=== PATIENT | female | born 1925 | race Caucasian/White ===

== ENCOUNTER 2016-08-10 12:47 | Inpatient (IN) | payer OTHER, MEDICAID ==
[~2016-08-10] VITALS: Ht 154.9 cm; Wt 66.7 kg
[2016-08-10 13:08] VITALS: BP_SYST 145
[2016-08-10 14:00] LABS: EOSINOPHILS # (AUTO) 0.1 K/uL (0.0-0.4); EOSINOPHILS % (AUTO) 2.1 % (0.0-4.0)
[2016-08-10 14:05] LABS: BASOPHILS % (AUTO) 0.2 % (0.0-2.0); HEMATOCRIT 35.8 % (36-48); HEMOGLOBIN 11.9 g/dL (12.0-16.0); LYMPHOCYTES # (AUTO) 1.6 K/uL (1.0-5.5); LYMPHOCYTES % (AUTO) 23.7 % (20.5-51.5); MEAN CORPUSCULAR HEMOGLOBIN 30 pg (27-31); MEAN CORPUSCULAR HGB CONC 33 % (32-36); MEAN CORPUSCULAR VOLUME 89 fL (79.0-98.0); MONOCYTES # (AUTO) 0.6 K/uL (0.0-1.0); NEUTROPHILS # (AUTO) 4.6 K/uL (1.8-7.7); PLATELET COUNT (AUTO) 232 K/uL (130-430); RED BLOOD CELL COUNT(AUTO) 4.03 MIL/uL (4.2-6.2); RED CELL DISTRIBUTION WIDTH 14.3 % (9.0-15.0); WHITE BLOOD COUNT (AUTO) 6.9 K/uL (4.8-10.8)
[2016-08-10 14:10] LABS: PROTHROMBIN TIME 11.2 SECS (9.5-12.5)
[2016-08-10 14:16] LABS: ANION GAP 5 (5-15); CALCIUM 9.6 mg/dL (8.4-11.0); CHLORIDE 105 mmol/L (98-107); GLUCOSE 135 mg/dL (70-99); POTASSIUM 3.8 mmol/L (3.5-5.1); SODIUM SERUM 142 mmol/L (136-145); UREA NITROGEN, BLOOD 23 mg/dL (8-21)
[2016-08-10 14:24] LABS: TOTAL BILIRUBIN 0.6 mg/dL (0.0-1.0)
[2016-08-10 14:25] LABS: ALANINE AMINOTRANSFERASE 37 U/L (12-78); ALBUMIN 3.3 g/dL (3.4-4.8); ASPARTATE AMINOTRANSFERASE 34 U/L (10-37); CREATINE KINASE, TOTAL 11 U/L (26-192); TOTAL PROTEIN, SERUM 7.1 g/dL (6.4-8.3)
[2016-08-10 15:01] LABS: BILIRUBIN,URINE NEGATIVE (NEGATIVE); BLOOD, URINE NEGATIVE (NEGATIVE); CLARITY/URINE CLEAR (CLEAR); COLOR,URINE YELLOW (YELLOW); GLUCOSE,URINE NEGATIVE (NEGATIVE); KETONES,URINE NEGATIVE (NEGATIVE); LEUKOCYTE ESTERASE ,URINE TRACE (NEGATIVE); NITRITE, URINE NEGATIVE (NEGATIVE); PH,URINE 5.5 (5.0-8.0); PROTEIN URINE NEGATIVE (NEGATIVE)
[2016-08-10 16:02] VITALS: BP_SYST 168
[2016-08-10 16:11] LABS: BACTERIA,URINE FEW /HPF (None Seen); RBC,URINE 0-3 /HPF (0-3)
[2016-08-10 16:12] LABS: HYALINE CASTS, URINE 0-10 /LPF (None Seen); MUCUS,URINE 2+ /LPF (None Seen)
[2016-08-10] MEDS ORDERED: MORPHINE 2 MG/ML INJ. SYRINGE IVP PRN (17:15)
[2016-08-10] MEDS ORDERED: traMADol HCL HCL 50 MG TABLET (ULTRAM) PO PRN (17:15)
[2016-08-10] MEDS ORDERED: ACETAMINOPHEN 325 MG TABLET PO PRN (17:15)
[2016-08-10] MEDS ORDERED: ONDANSETRON HCL 4 MG/2 ML VIAL IVP PRN (17:15)
[2016-08-10] MEDS ORDERED: CELE200C PO (17:28)
[2016-08-10] MEDS ORDERED: NOR10 PO (17:28)
[2016-08-10] MEDS ORDERED: FLUO40CA8 PO (17:28)
[2016-08-10] MEDS ORDERED: LORA2TAB PO (17:28)
[2016-08-10] MEDS ORDERED: TEMA30CA5 PO (17:28)
[2016-08-10] MEDS ORDERED: DONE10TA44 PO (17:28)
[2016-08-10] MEDS ORDERED: RIVA20TA PO (17:28)
[2016-08-10] MEDS ORDERED: TYC3 PO (17:28)
[2016-08-10] MEDS: cefTRIAXone 1 GM in D5W 50 ML IV SCH (18:55)
[2016-08-10 19:30] VITALS: BP_SYST 141
[2016-08-10] MEDS: CIPROFLOXACIN LACT 200 MG/D5W 100 ML IV SCH (21:51)
[2016-08-10] MEDS ORDERED: cloNIDine HCL 0.1 MG TABLET PO PRN (23:30)
[2016-08-11] VITALS (7 sets, daily range): BP systolic 106–165
[2016-08-11] MEDS: CIPROFLOXACIN LACT 200 MG/D5W 100 ML IV SCH ×2 (08:59→22:56)
[2016-08-11] MEDS ORDERED: ACETAMINOPHEN/CODEINE 300 MG-30 MG TABLET PO PRN (12:45)
[2016-08-11] MEDS ORDERED: amLODIPine BESYLATE 10 MG TABLET PO ONE (13:00)
[2016-08-11] MEDS ORDERED: FLUoxetine HCL 20 MG CAPSULE (PROzac) PO ONE (13:15)
[2016-08-11] MEDS: cefTRIAXone 1 GM in D5W 50 ML IV SCH (18:00)
[2016-08-11] MEDS: QUEtiapine FUMARATE 25 MG TABLET PO SCH (22:52)
[2016-08-12] VITALS (7 sets, daily range): BP systolic 129–150
[2016-08-12 06:40] LABS: BASOPHILS % (AUTO) 0.2 % (0.0-2.0); EOSINOPHILS # (AUTO) 0.3 K/uL (0.0-0.4); HEMATOCRIT 35.3 % (36-48); HEMOGLOBIN 11.7 g/dL (12.0-16.0); LYMPHOCYTES % (AUTO) 35.5 % (20.5-51.5); MEAN CORPUSCULAR HEMOGLOBIN 30 pg (27-31); MEAN CORPUSCULAR HGB CONC 33 % (32-36); MEAN CORPUSCULAR VOLUME 89 fL (79.0-98.0); MONOCYTES # (AUTO) 0.8 K/uL (0.0-1.0); MONOCYTES % (AUTO) 9.9 % (1.7-9.3); NEUTROPHILS # (AUTO) 4.3 K/uL (1.8-7.7); NEUTROPHILS % (AUTO) 51.4 % (40.0-70.0); PLATELET COUNT (AUTO) 190 K/uL (130-430); RED BLOOD CELL COUNT(AUTO) 3.97 MIL/uL (4.2-6.2); WHITE BLOOD COUNT (AUTO) 8.4 K/uL (4.8-10.8)
[2016-08-12 06:54] LABS: ANION GAP 3 (5-15); CALCIUM 9.5 mg/dL (8.4-11.0); CHLORIDE 107 mmol/L (98-107); GLUCOSE 101 mg/dL (70-99); POTASSIUM 3.7 mmol/L (3.5-5.1); SODIUM SERUM 140 mmol/L (136-145); UREA NITROGEN, BLOOD 14 mg/dL (8-21)
[2016-08-12] MEDS: CIPROFLOXACIN LACT 200 MG/D5W 100 ML IV SCH ×2 (08:32→21:35)
[2016-08-12] MEDS: DONEPEZIL HCL 5 MG TABLET (ARICEPT) PO SCH ×2 (08:32→21:33)
[2016-08-12] MEDS: amLODIPine BESYLATE 10 MG TABLET PO SCH (08:33)
[2016-08-12] MEDS: FLUoxetine HCL 20 MG CAPSULE (PROzac) PO SCH (08:33)
[2016-08-12] MEDS ORDERED: DONEPEZIL HCL 5 MG TABLET (ARICEPT) PO SCH (09:00)
[2016-08-12] MEDS ORDERED: CELECOXIB 200 MG CAPSULE PO SCH (09:00)
[2016-08-12] MEDS ORDERED: LR 1,000 ML IV.SOLN IV ONE (10:46)
[2016-08-12] MEDS ORDERED: SUCCINYLCHOLINE CHLORIDE 20 MG/ML(QUELICIN) IVP ONE (10:46)
[2016-08-12] MEDS ORDERED: MIDAZOLAM HCL 5 MG/5 ML VIAL IVP ONE (10:46)
[2016-08-12] MEDS ORDERED: PROPOFOL 200MG/ 20ML VIAL (DIPRIVAN) IV ONE (10:46)
[2016-08-12] MEDS ORDERED: ONDANSETRON HCL 4 MG/2 ML VIAL IVP ONE (10:46)
[2016-08-12] MEDS ORDERED: METOPROLOL TARTRATE 5 MG/5 ML VIAL IVP ONE (10:46)
[2016-08-12] MEDS ORDERED: CEFAZOLIN 2 GM IVPB PREMIX 50 ML IV ONE (10:46)
[2016-08-12] MEDS ORDERED: KETOROLAC TROMETHAMINE 30 MG VIAL IVP ONE (10:46)
[2016-08-12] MEDS ORDERED: SEVOFLURANE 15 MIN GAS INH ONE (10:46)
[2016-08-12] MEDS ORDERED: fentaNYL CITRATE/PF 100 MCG/2 ML AMP IVP ONE (10:46)
[2016-08-12] MEDS ORDERED: MEPERIDINE HCL/PF 50 MG/ML AMP IM ONE (10:46)
[2016-08-12] MEDS ORDERED: POLYMYXIN 500,000/BACIT.10,000 UNITS in NS IRR 1 L IR ONE (10:47)
[2016-08-12] MEDS ORDERED: LR 1,000 ML IV SCH (11:48)
[2016-08-12] MEDS ORDERED: HYDROmorphone 2 MG/ML VIAL IVP PRN (12:00)
[2016-08-12] MEDS ORDERED: HYDROmorphone 1 MG INJ. 1 MG/ML AMPUL IVP PRN (12:00)
[2016-08-12] MEDS ORDERED: ePHEDrine sulfate 50 MG/ML VIAL IVP PRN (12:00)
[2016-08-12] MEDS ORDERED: ONDANSETRON HCL 4 MG/2 ML VIAL IVP PRN (13:30)
[2016-08-12] MEDS ORDERED: HYDROcodone/ACETAMIN 7.5-325 MG TAB PO PRN (13:30)
[2016-08-12] MEDS ORDERED: ACETAMINOPHEN 500 MG TABLET PO PRN (13:30)
[2016-08-12] MEDS ORDERED: MILK OF MAGNESIA 30 ML UDC PO PRN (13:30)
[2016-08-12] MEDS ORDERED: DIPHENHYDRAMINE INJ 50 MG/ML VIAL IVP PRN (13:30)
[2016-08-12] MEDS ORDERED: HYDROcodone/ACETAMIN 10-325 MG TAB PO PRN (13:30)
[2016-08-12] MEDS ORDERED: DIPHENHYDRAMINE HCL 25 MG CAPSULE PO PRN (13:30)
[2016-08-12] MEDS: cefTRIAXone 1 GM in D5W 50 ML IV SCH (18:22)
[2016-08-12] MEDS: QUEtiapine FUMARATE 25 MG TABLET PO SCH (21:33)
[2016-08-12] MEDS: SENNOSIDES 8.6 MG TABLET PO SCH (21:34)
[2016-08-13 05:20] VITALS: BP_SYST 116
[2016-08-13 06:37] LABS: BASOPHILS % (AUTO) 0.3 % (0.0-2.0); CALCIUM 8.7 mg/dL (8.4-11.0); CHLORIDE 107 mmol/L (98-107); CREATININE 1.01 mg/dL (0.55-1.30); EOSINOPHILS % (AUTO) 0.4 % (0.0-4.0); GLUCOSE 159 mg/dL (70-99); HEMATOCRIT 33.6 % (36-48); HEMOGLOBIN 10.8 g/dL (12.0-16.0); LYMPHOCYTES # (AUTO) 1.3 K/uL (1.0-5.5); LYMPHOCYTES % (AUTO) 14.5 % (20.5-51.5); MEAN CORPUSCULAR HEMOGLOBIN 29 pg (27-31); MEAN CORPUSCULAR HGB CONC 32 % (32-36); MEAN CORPUSCULAR VOLUME 90 fL (79.0-98.0); MONOCYTES # (AUTO) 0.9 K/uL (0.0-1.0); NEUTROPHILS # (AUTO) 6.6 K/uL (1.8-7.7); NEUTROPHILS % (AUTO) 74.8 % (40.0-70.0); PLATELET COUNT (AUTO) 198 K/uL (130-430); RED BLOOD CELL COUNT(AUTO) 3.72 MIL/uL (4.2-6.2); RED CELL DISTRIBUTION WIDTH 14.5 % (9.0-15.0); SODIUM SERUM 139 mmol/L (136-145); UREA NITROGEN, BLOOD 19 mg/dL (8-21); WHITE BLOOD COUNT (AUTO) 8.8 K/uL (4.8-10.8)
[2016-08-13 06:57] LABS: ANION GAP < 3 (5-15)
[2016-08-13 07:27] VITALS: BP_SYST 126
[2016-08-13] MEDS: CIPROFLOXACIN LACT 200 MG/D5W 100 ML IV SCH ×2 (09:56→20:58)
[2016-08-13] MEDS: FLUoxetine HCL 20 MG CAPSULE (PROzac) PO SCH (10:22)
[2016-08-13] MEDS: ASCORBIC ACID 500 MG TABLET PO SCH ×2 (10:22→20:54)
[2016-08-13] MEDS: MULTIVITAMINS TAB 1 TABLET PO SCH (10:23)
[2016-08-13] MEDS: ENOXAPARIN SODIUM 40 MG/0.4 ML SYRINGE SUBCUT SCH (10:24)
[2016-08-13] MEDS: amLODIPine BESYLATE 10 MG TABLET PO SCH (10:24)
[2016-08-13 11:28] VITALS: BP_SYST 120
[2016-08-13 15:27] VITALS: BP_SYST 118
[2016-08-13] MEDS: cefTRIAXone 1 GM in D5W 50 ML IV SCH (17:53)
[2016-08-13] MEDS: DONEPEZIL HCL 5 MG TABLET (ARICEPT) PO SCH (20:54)
[2016-08-13] MEDS: QUEtiapine FUMARATE 25 MG TABLET PO SCH (20:54)
[2016-08-13] MEDS: SENNOSIDES 8.6 MG TABLET PO SCH (20:54)
[2016-08-14 07:04] LABS: BASOPHILS % (AUTO) 0.3 % (0.0-2.0); EOSINOPHILS % (AUTO) 0.4 % (0.0-4.0); HEMATOCRIT 27.4 % (36-48); HEMOGLOBIN 8.9 g/dL (12.0-16.0); LYMPHOCYTES # (AUTO) 2.2 K/uL (1.0-5.5); LYMPHOCYTES % (AUTO) 18.6 % (20.5-51.5); MEAN CORPUSCULAR HEMOGLOBIN 29 pg (27-31); MEAN CORPUSCULAR HGB CONC 32 % (32-36); MEAN CORPUSCULAR VOLUME 89 fL (79.0-98.0); MONOCYTES # (AUTO) 1.1 K/uL (0.0-1.0); MONOCYTES % (AUTO) 9.6 % (1.7-9.3); NEUTROPHILS # (AUTO) 8.7 K/uL (1.8-7.7); NEUTROPHILS % (AUTO) 71.1 % (40.0-70.0); PLATELET COUNT (AUTO) 172 K/uL (130-430); RED BLOOD CELL COUNT(AUTO) 3.08 MIL/uL (4.2-6.2); RED CELL DISTRIBUTION WIDTH 14.2 % (9.0-15.0)
[2016-08-14 07:21] LABS: ANION GAP 3 (5-15); CALCIUM 8.4 mg/dL (8.4-11.0); CHLORIDE 103 mmol/L (98-107); CREATININE 1.15 mg/dL (0.55-1.30); GLUCOSE 147 mg/dL (70-99); POTASSIUM 4.3 mmol/L (3.5-5.1); SODIUM SERUM 135 mmol/L (136-145); UREA NITROGEN, BLOOD 30 mg/dL (8-21)
[2016-08-14 07:54] VITALS: BP_SYST 118
[2016-08-14] MEDS: ASCORBIC ACID 500 MG TABLET PO SCH ×2 (09:13→20:48)
[2016-08-14] MEDS: CIPROFLOXACIN LACT 200 MG/D5W 100 ML IV SCH (09:13)
[2016-08-14] MEDS: ENOXAPARIN SODIUM 40 MG/0.4 ML SYRINGE SUBCUT SCH (09:13)
[2016-08-14] MEDS: amLODIPine BESYLATE 10 MG TABLET PO SCH (09:14)
[2016-08-14] MEDS: FLUoxetine HCL 20 MG CAPSULE (PROzac) PO SCH (09:15)
[2016-08-14] MEDS: MULTIVITAMINS TAB 1 TABLET PO SCH ×2 (09:15→20:48)
[2016-08-14] MEDS ORDERED: MULTIVITAMINS TAB 1 TABLET PO ONE (10:15)
[2016-08-14] MEDS ORDERED: CHOLECALCIFEROL (VITAMIN D3) 2,000 UNIT TABLET PO ONE (10:15)
[2016-08-14] MEDS: NACL 0.9% 1,000 ML IV SCH (10:54)
[2016-08-14] MEDS: SOD FERRIC GLUC COMPLEX/SUC 125 MG in NS 100 ML IV SCH (10:54)
[2016-08-14 12:28] VITALS: BP_SYST 118
[2016-08-14 16:24] VITALS: BP_SYST 119
[2016-08-14 19:30] VITALS: BP_SYST 138
[2016-08-14] MEDS: QUEtiapine FUMARATE 25 MG TABLET PO SCH (20:48)
[2016-08-14] MEDS: DONEPEZIL HCL 5 MG TABLET (ARICEPT) PO SCH (20:48)
[2016-08-14] MEDS: SENNOSIDES 8.6 MG TABLET PO SCH (20:48)
[2016-08-15 04:34] VITALS: BP_SYST 130
[2016-08-15] MEDS: NACL 0.9% 1,000 ML IV SCH ×2 (05:03→14:36)
[2016-08-15 06:36] LABS: BASOPHILS % (AUTO) 0.2 % (0.0-2.0); EOSINOPHILS # (AUTO) 0.1 K/uL (0.0-0.4); EOSINOPHILS % (AUTO) 1.3 % (0.0-4.0); HEMATOCRIT 26.6 % (36-48); HEMOGLOBIN 8.5 g/dL (12.0-16.0); LYMPHOCYTES # (AUTO) 2.8 K/uL (1.0-5.5); MEAN CORPUSCULAR HEMOGLOBIN 29 pg (27-31); MEAN CORPUSCULAR HGB CONC 32 % (32-36); MEAN CORPUSCULAR VOLUME 90 fL (79.0-98.0); MONOCYTES # (AUTO) 1.1 K/uL (0.0-1.0); MONOCYTES % (AUTO) 10.1 % (1.7-9.3); NEUTROPHILS # (AUTO) 7.2 K/uL (1.8-7.7); NEUTROPHILS % (AUTO) 63.4 % (40.0-70.0); PLATELET COUNT (AUTO) 167 K/uL (130-430); RED BLOOD CELL COUNT(AUTO) 2.96 MIL/uL (4.2-6.2); RED CELL DISTRIBUTION WIDTH 14.8 % (9.0-15.0); WHITE BLOOD COUNT (AUTO) 11.2 K/uL (4.8-10.8)
[2016-08-15 06:37] LABS: ANION GAP 5 (5-15); CALCIUM 8.5 mg/dL (8.4-11.0); CHLORIDE 104 mmol/L (98-107); CREATININE 0.81 mg/dL (0.55-1.30); GLUCOSE 107 mg/dL (70-99); POTASSIUM 4.1 mmol/L (3.5-5.1); SODIUM SERUM 137 mmol/L (136-145); UREA NITROGEN, BLOOD 27 mg/dL (8-21)
[2016-08-15 08:17] VITALS: BP_SYST 155
[2016-08-15] MEDS ORDERED: CHOLECALCIFEROL (VITAMIN D3) 2,000 UNIT TABLET PO SCH (09:00)
[2016-08-15] MEDS: ENOXAPARIN SODIUM 40 MG/0.4 ML SYRINGE SUBCUT SCH (09:15)
[2016-08-15] MEDS: FLUoxetine HCL 20 MG CAPSULE (PROzac) PO SCH (09:16)
[2016-08-15] MEDS: ASCORBIC ACID 500 MG TABLET PO SCH (09:16)
[2016-08-15] MEDS: MULTIVITAMINS TAB 1 TABLET PO SCH (09:17)
[2016-08-15] MEDS: SOD FERRIC GLUC COMPLEX/SUC 125 MG in NS 100 ML IV SCH (09:18)
[2016-08-15] MEDS: amLODIPine BESYLATE 10 MG TABLET PO SCH (09:18)
[2016-08-15] MEDS ORDERED: EPOETIN ALFA 4,000 UNITS/ML VIAL SUBCUT ONE (11:00)
[2016-08-15 11:47] VITALS: BP_SYST 137
[2016-08-15 14:33] VITALS: BP_SYST 137
[2016-08-15 16:20] VITALS: BP_SYST 121
== END 2016-08-15 17:33 | DRG 470 ==
LOC: SED 12:51 → SMU 15:36
PROVIDERS: ADMIT Internal Medicine; ATTEND Internal Medicine
PROC: 3E0T3CZ (ICD-10-PCS; 2016-08-12)
PROC: 0SRS01A Replacement of Left Hip Joint, Femoral Surface with Metal Synthetic Substitute, Uncemented, Open Approach (ICD-10-PCS; principal; 2016-08-12 13:00)
DX: S72.012A Unspecified intracapsular fracture of left femur, initial encounter for closed fracture (principal); N39.0 Urinary tract infection, site not specified; D62 Acute posthemorrhagic anemia; E44.1 Mild protein-calorie malnutrition; M81.0 Age-related osteoporosis without current pathological fracture; I10 Essential (primary) hypertension; F03.90 Unspecified dementia, unspecified severity, without behavioral disturbance, psychotic disturbance, mood disturbance, and anxiety; R41.0 Disorientation, unspecified; E11.9 Type 2 diabetes mellitus without complications; M19.90 Unspecified osteoarthritis, unspecified site; Z83.3 Family history of diabetes mellitus; Z82.61 Family history of arthritis; Z80.9 Family history of malignant neoplasm, unspecified; Z68.27 Body mass index [BMI] 27.0-27.9, adult
CPT/HCPCS: 36415; 71010; 72170-TC; 73510-TC; 80048; 80053; 81000-TC; 82550-TC; 82962; 83880; 84484; 85025; 85610-TC; 85730-TC; 86886; 86900; 86901; 87081; 87086; 88304; 88305; 88311; 93005; 93306; 94010; 97110-GP; 97530-GP; 99285; C1776; J0330; J0690; J0696; J0744; J0885; J1650; J1885; J2175; J2250; J2405; J2704; J2916; J3010; J3490; J7030; J7050; J7060; J7120